=== PATIENT | female | born 1975 | race Caucasian/White ===

== ENCOUNTER 2016-08-20 10:53 | Emergency (ER) | payer OTHER ==
--- NOTE | 2016-08-20 12:27 | ED.PDOC ---
History of Present Illness - General Chief Complaint: Upper Extremity Injury Stated Complaint: pain right forearm Time Seen by Provider: 08/20/16 12:26 Source: patient, RN notes reviewed, Vital Signs reviewed Exam Limitations: no limitations Additional Information: Stated tripped oher dog last night fell to the floor on her right arm,denies head and neck ,back hip,injuries - History of Present Illness Timing/Duration: 24 hours Severity: moderate Improving Factors: rest Worsening Factors: movement Associated Symptoms: other - pain right arm Home Medications: Ambulatory Orders Tramadol HCl 50 mg PO TID PRN #20 tab 08/20/16 Review of Systems - Review of Systems Constitutional: States: no symptoms reported EENTM: States: no symptoms reported Respiratory: States: no symptoms reported Cardiology: States: no symptoms reported Gastrointestinal/Abdominal: States: no symptoms reported Genitourinary: States: no symptoms reported Musculoskeletal: States: muscle stiffness Skin: States: no symptoms reported Neurological: States: no symptoms reported Past Medical History (General) - Patient Medical History Hx Seizures: No Hx Hypertension: No Hx Diabetes: No Surgical History: appendectomy, cholecystectomy, other - TAHBSO - Activities of Daily Living Patient Lives Alone: No - lives with family Family Medical History - Family History Father Hx Cardiac Disease: Yes Hx Family Diabetes: Yes Hx Family;Other: COPD Physical Exam - Physical Exam General Appearance: Alert, No apparent distress Ears, Nose, Throat: hearing grossly normal, normal ENT inspection, normal pharynx Neck: non-tender, full range of motion, supple, normal inspection Respiratory: chest non-tender, lungs clear, normal breath sounds, no respiratory distress Cardiovascular/Chest: normal peripheral pulses, regular rate, rhythm, no edema, no gallop Gastrointestinal/Abdominal: normal bowel sounds, non tender Back Exam: normal inspection, no CVA tenderness Extremity: other - Right forearm-tenderness mild swelling noted Progress - EKG/XRAY/CT XRAY: forearm - wrist no fracture noted Departure - Departure Clinical Impression: Pain of right forearm Fall at home Qualifiers: Encounter type: initial encounter Qualifier Code: (W19.XXXA) Unspecified fall, initial encounter Contusion of forearm, right Qualifiers: Encounter type: initial encounter Qualifier Code: (S50.11XA) Contusion of right forearm, initial encounter Time of Disposition: 13:38 Disposition: Discharge to Home or Self Care Condition: Good Instructions: DI for Contusion Prescriptions: Tramadol HCl 50 mg PO TID PRN #20 tab PRN Reason: Pain -- Moderate To Severe Home Medications: Ambulatory Orders Tramadol HCl 50 mg PO TID PRN #20 tab 08/20/16 Additional Instructions: ICE PACK TO AFFECTED AREA 15 MINUTES 3 x a day until better durin waking hours
[2016-08-20] MEDS ORDERED: IBUPROFEN 200 MG TAB PO ONE (13:13)
[2016-08-20] MEDS ORDERED: HYDROcodone 10MG/APAP 325MG 1 EA TAB PO ONE (13:13)
--- NOTE | 2016-08-20 13:28 | RAD ---
EXAM DESCRIPTION: X-RAY right Wrist CLINICAL HISTORY: Right wrist pain. COMPARISON: None. TECHNIQUE: 3.0 views of the right wrist. FINDINGS: There is no evidence of acute fractures or dislocations involving the bones of the right wrist. The joint spaces of the wrist are relatively well preserved. The adjacent soft tissues are unremarkable. There is no visualization of any radiopaque foreign bodies in the soft tissues of the wrist. If there is persistence of wrist pain, repeat films can be done in few days interval, to rule out occult bony trauma involving the wrist joint. Growth plate injuries, if present, at times, may not be visualized radiographically. IMPRESSION: Negative for acute bony findings in the right wrist. Electronically signed by: Corey Pereira MD 08/20/2016 13:26
--- NOTE | 2016-08-20 13:28 | RAD ---
EXAM DESCRIPTION: X-RAY right Forearm CLINICAL HISTORY: Status post fall and right forearm pain COMPARISON: X-ray of the right wrist done on the same day. TECHNIQUE: 2.0 views of the right forearm. FINDINGS: There is no evidence of fractures or dislocations involving the bones of the right forearm. Limited evaluation of the adjacent elbow joint and adjacent wrist joint does not show any gross acute bony abnormality. There are no focal bony lesions or periosteal reactions in the right radius and ulna. The adjacent soft tissues are unremarkable. There is no visualization of any radiopaque foreign bodies. IMPRESSION: Negative for acute bony findings in the right forearm. Electronically signed by: Corey Pereira MD 08/20/2016 13:27
[2016-08-20 13:30] VITALS: TEMP 97.2; O2SAT 99
[2016-08-20 14:08] VITALS: BP 118/78
== END 2016-08-20 14:06 | disposition home or self-care (01) ==
LOC: ER 10:53
DX: S50.11XA Contusion of right forearm, initial encounter (principal); W01.0XXA Fall on same level from slipping, tripping and stumbling without subsequent striking against object, initial encounter; Z83.3 Family history of diabetes mellitus; Z82.49 Family history of ischemic heart disease and other diseases of the circulatory system